=== PATIENT | male | born 1990 | race Caucasian/White ===

== ENCOUNTER 2017-03-01 02:43 | Emergency (ER) | payer SELFPAY ==
[~2017-03-01] VITALS: Ht 198.1 cm; Wt 97.8 kg
[2017-03-01 02:48] VITALS: BP 128/74; PULSE 95; RESP 16; TEMP 98.2; O2SAT 97
[2017-03-01 03:40] VITALS: BP_SYST 100; BP_SYST 112; BP_SYST 118; BP_DIAS 52; BP_DIAS 54; BP_DIAS 62; RESP 16
[2017-03-01] MEDS ORDERED: SODIUM CHLOR 0.9% 1000 ML INJ 1,000 ML IV SCH (03:44)
[2017-03-01 03:45] VITALS: O2SAT 99
[2017-03-01] MEDS ORDERED: SODIUM CHLORIDE 0.9% FLUSH 10 ML FLUSH IVF PRN (03:45)
[2017-03-01 04:15] VITALS: BP 114/52; PULSE 67; RESP 18; O2SAT 98
[2017-03-01 04:28] LABS: AUTOMATED NEUTROPHIL # 4.2 TH/MM3 (1.8-7.7); BASOPHIL # 0.3 TH/MM3 (0-0.2); EOSINOPHIL # 0.2 TH/MM3 (0-0.4); EOSINOPHIL % 2.1 % (0.0-4.0); HEMATOCRIT 48.5 % (39.0-51.0); HEMO FLAGS DIFF FINAL; LYMPH % 40.6 % (9.0-44.0); LYMPHOCYTE # 3.6 TH/MM3 (1.0-4.8); MEAN CELL VOLUME 81.7 FL (80.0-100.0); MEAN CORPUSCULAR HEMOGLOBIN 26.9 PG (27.0-34.0); MEAN CORPUSCULAR HGB CONC 32.9 % (32.0-36.0); MONO % 6.3 % (0.0-8.0); PLATELET COUNT 283 TH/MM3 (150-450); RED BLOOD COUNT 5.93 MIL/MM3 (4.50-5.90); RED CELL DISTRIBUTION WIDTH 12.1 % (11.6-17.2); WHITE BLOOD COUNT 8.9 TH/MM3 (4.0-11.0)
[2017-03-01 04:36] LABS: CHLORIDE 104 MEQ/L (98-107); POTASSIUM 3.9 MEQ/L (3.5-5.1); SODIUM (NA) 139 MEQ/L (136-145)
[2017-03-01 04:40] LABS: ANION GAP 6 MEQ/L (5-15); BICARBONATE 29.4 MEQ/L (21.0-32.0); BLOOD UREA NITROGEN 9 MG/DL (7-18)
[2017-03-01 04:41] LABS: APTT (PATIENT) 34.5 SEC (24.3-30.1); PROTHROMBIN TIME - PATIENT 11.6 SEC (9.8-11.6)
[2017-03-01 04:43] LABS: ALT (GPT) 22 U/L (12-78); AST (GOT) 15 U/L (15-37); GLOMERULAR FILTRATION RATE 122 ML/MIN (>89)
[2017-03-01 04:44] LABS: TOTAL BILIRUBIN ADULT 0.6 MG/DL (0.2-1.0)
[2017-03-01 04:46] LABS: ALKALINE PHOSPHATASE 86 U/L (45-117)
--- NOTE | 2017-03-01 04:49 | PD ---
HPI Chief Complaint: GI Complaint Time Seen by Provider: 03:44 Travel History International Travel<30 days: No Contact w/Intl Traveler<30days: No Traveled to known affect area: No History of Present Illness HPI 26-year-old male presents to the emergency department by private transportation for evaluation of episode of painless rectal bleeding just prior to arrival to the emergency department patient states has had a few similar episodes in the past but smaller volume and became concerned due to noting blood on toilet paper as well as toilet bowl. Patient states he hasn't felt quite well today but does not report fever chills nausea vomiting anorexia or abdominal pain. No history or family history of inflammatory bowel disease or irritable bowel syndrome. Patient rates his pain 0/10 intensity. Patient denies any chronic medical concerns. No recent antibiotic use. Also no near syncope syncope dyspnea generalized weakness or shortness of breath reported. PFSH Past Medical History Narrative Medical Kidney stones; no surgery; tobacco use alcohol use; no significant Diminished Hearing: No Kidney Stones: Yes Tetanus Vaccination: < 5 Years Influenza Vaccination: No Past Surgical History Surgical History: No Previous Surgery Social History Alcohol Use: Yes (Rarely) Tobacco Use: Yes (1/2 ppd) Substance Use: No Allergies-Medications (Allergen,Severity, Reaction): Coded Allergies: No Known Allergies (Unverified , 03/01/17) Reported Meds & Prescriptions Reported Meds & Active Scripts Active No Active Prescriptions or Reported Medications Review of Systems Except as stated in HPI: all other systems reviewed are Neg Physical Exam Narrative GENERAL: Well-developed well-nourished male in no acute distress no respiratory distress SKIN: Warm and dry. HEAD: Normocephalic. EYES: No scleral icterus. No injection or drainage. NECK: Supple, trachea midline. No JVD or lymphadenopathy. CARDIOVASCULAR: Regular rate and rhythm without murmurs, gallops, or rubs. RESPIRATORY: Breath sounds equal bilaterally. No accessory muscle use. GASTROINTESTINAL: Abdomen soft, non-tender, nondistended. No guarding no rebound no tenderness to direct palpation. Rectal exam normal sphincter tone no prolapsed hemorrhoids no fissure no tear; normal sphincter tone; light brown stool with streaks of red blood on the exam glove. MUSCULOSKELETAL: No cyanosis, or edema. BACK: Nontender without obvious deformity. No CVA tenderness. Data Data Last Documented VS Vital Signs Date Time Temp Pulse Resp B/P (MAP) Pulse Ox O2 Delivery O2 Flow Rate FiO2 03/01/17 05:25 62 18 111/58 (75) 100 Room Air 03/01/17 02:48 98.2 Orders Orders Complete Blood Count With Diff (03/01/17 03:44) Comprehensive Metabolic Panel (03/01/17 03:44) Prothrombin Time / Inr (Pt) (03/01/17 03:44) Act Partial Throm Time (Ptt) (03/01/17 03:44) Abdomen, Flat & Upright (03/01/17 03:44) Ecg Monitoring (03/01/17 03:44) Iv Access Insert/Monitor (03/01/17 03:44) Oximetry (03/01/17 03:44) Sodium Chlor 0.9% 1000 Ml Inj (Ns 1000 M (03/01/17 03:44) Sodium Chloride 0.9% Flush (Ns Flush) (03/01/17 03:45) Orthostatic Vital Signs (03/01/17 03:44) Ct Abd/Pel W Iv Contrast(Rout) (03/01/17 ) Iohexol 350 Inj (Omnipaque 350 Inj) (03/01/17 05:22) Mandatory Outpatient Referral (03/01/17 05:59) Labs Laboratory Tests Test 03/01/17 03:45 White Blood Count 8.9 TH/MM3 Red Blood Count 5.93 MIL/MM3 Hemoglobin 15.9 GM/DL Hematocrit 48.5 % Mean Corpuscular Volume 81.7 FL Mean Corpuscular Hemoglobin 26.9 PG Mean Corpuscular Hemoglobin Concent 32.9 % Red Cell Distribution Width 12.1 % Platelet Count 283 TH/MM3 Mean Platelet Volume 8.6 FL Neutrophils (%) (Auto) 48.0 % Lymphocytes (%) (Auto) 40.6 % Monocytes (%) (Auto) 6.3 % Eosinophils (%) (Auto) 2.1 % Basophils (%) (Auto) 3.0 % Neutrophils # (Auto) 4.2 TH/MM3 Lymphocytes # (Auto) 3.6 TH/MM3 Monocytes # (Auto) 0.6 TH/MM3 Eosinophils # (Auto) 0.2 TH/MM3 Basophils # (Auto) 0.3 TH/MM3 CBC Comment DIFF FINAL Differential Comment Prothrombin Time 11.6 SEC Prothromb Time International Ratio 1.0 RATIO Activated Partial Thromboplast Time 34.5 SEC Blood Urea Nitrogen 9 MG/DL Creatinine 0.78 MG/DL Random Glucose 83 MG/DL Total Protein 7.8 GM/DL Albumin 3.9 GM/DL Calcium Level 8.6 MG/DL Alkaline Phosphatase 86 U/L Aspartate Amino Transf (AST/SGOT) 15 U/L Alanine Aminotransferase (ALT/SGPT) 22 U/L Total Bilirubin 0.6 MG/DL Sodium Level 139 MEQ/L Potassium Level 3.9 MEQ/L Chloride Level 104 MEQ/L Carbon Dioxide Level 29.4 MEQ/L Anion Gap 6 MEQ/L Estimat Glomerular Filtration Rate 122 ML/MIN MDM Medical Decision Making Medical Screen Exam Complete: Yes Emergency Medical Condition: Yes Medical Record Reviewed: Yes Interpretation(s) CBC & BMP Diagram 03/01/17 03:45 Total Protein 7.8, Albumin 3.9, Calcium Level 8.6, Alkaline Phosphatase 86, Aspartate Amino Transf (AST/SGOT) 15, Alanine Aminotransferase (ALT/SGPT) 22, Total Bilirubin 0.6 Vital Signs Date Time Temp Pulse Resp B/P (MAP) Pulse Ox O2 Delivery O2 Flow Rate FiO2 03/01/17 04:15 67 18 114/52 (72) 98 Room Air 03/01/17 03:45 99 Room Air 03/01/17 03:40 70 16 112/54 (73) 78 16 118/62 (80) 90 16 100/52 (68) 03/01/17 02:48 98.2 95 16 128/74 (92) 97 Differential Diagnosis Rectal bleeding, internal hemorrhoid, mass, colitis, diverticulitis, viral syndrome Narrative Course IV access obtained specimens collected and sent for resulting orthostatic measurements were performed which showed some heart rate and blood pressure variance supine to standing; patient given liter of normal saline. Flat and upright abdomen x-ray reveals no acute abnormalities CBC is automated differential within normal limits CT abdomen and pelvis reveals no acute abnormalities Patient resting comfortably no recurrence of rectal bleeding and patient reassessed with ambulation about the emergency department and remained asymptomatic Patient stable for outpatient management for rectal bleeding that appears to be controlled possibly internal hemorrhoids; mandatory referral for GI referral made and patient is aware that he will be contacted by case management regarding his appointment. Patient is encouraged to return immediately to the emergency department for any recurrent symptoms. No work times one day [facility] Point of Care Internal Pos. & Neg. Controls: Passed Fecal Specimen Occult Blood: Positive Diagnosis Primary Impression: Rectal bleeding Referrals: [employer] Consultant call for appointment Patient Instructions: General Instructions Departure Forms: Tests/Procedures, Work Release Special Instructions: no work x 1 day Additional Instructions: Increase fluid hydration Recommend clear liquid diet for next 12-24 hours advance as tolerated to bland diet adding dietary fiber and supplementing with [id number] fiber preparations Follow-up with human resources admin Return to the emergency department for any concerns or change in condition No work times one day Scripts No Active Prescriptions or Reported Meds Disposition: 01 DISCHARGE HOME Condition: Stable Elvia Allan MD Mar 01, 2017 04:49
--- NOTE | 2017-03-01 04:52 | RADRPT ---
EXAM DATE/TIME: 03/01/2017 03:53 [facility] COMPARISON: No previous studies available for comparison. INDICATIONS : Patient states blood in stool. MEDICAL HISTORY : None. SURGICAL HISTORY : None. ENCOUNTER: Initial ACUITY: 2 days PAIN SCORE: 5/10 LOCATION: Bilateral abdomen. FINDINGS: Supine and upright views of the abdomen were performed. The abdominal bowel gas pattern is normal. No air fluid levels are seen. No abnormal masses, calcifications, or organomegaly is seen. The visu alized lower lungs are clear. No evidence of free intraperitoneal gas. The osseous structures are u nremarkable. CONCLUSION: Normal examination. Sanjeev Ford Jr., MD on March 01, 2017 at 4:50 Board Certified Radiologist. This report was verified electronically.
[2017-03-01] MEDS ORDERED: IOHEXOL 350 MG/ML 10 ML VIAL (for RAD DIAG) IVCONTRAST ONE (05:22)
[2017-03-01 05:25] VITALS: BP 111/58; PULSE 62; RESP 18; O2SAT 100
--- NOTE | 2017-03-01 05:41 | RADRPT ---
EXAM DATE/TIME: 03/01/2017 05:12 [facility] COMPARISON: No previous studies available for comparison. INDICATIONS : Abdominal pain. Rectal bleeding. IV CONTRAST: 100 cc Omnipaque 350 (iohexol) IV ORAL CONTRAST: No oral contrast ingested. RADIATION DOSE: 12.69 CTDIvol (mGy) MEDICAL HISTORY : None SURGICAL HISTORY : None. ENCOUNTER: Initial ACUITY: 1 day PAIN SCALE: 0/10 LOCATION: lower quadrant TECHNIQUE: Volumetric scanning of the abdomen and pelvis was performed. Using automated exposure control and ad justment of the mA and/or kV according to patient size, radiation dose was kept as low as reasonably achievable to obtain optimal diagnostic quality images. DICOM format image data is available electro nically for review and comparison. FINDINGS: LOWER LUNGS: The visualized lower lungs are clear. LIVER: Homogeneous density without lesion. There is no dilation of the biliary tree. No calcified gallston es. SPLEEN: Normal size without lesion. PANCREAS: Within normal limits. KIDNEYS: Normal in size and shape. There is no mass, stone or hydronephrosis. ADRENAL GLANDS: Within normal limits. VASCULAR: There is no aortic aneurysm. BOWEL/MESENTERY: The stomach, small bowel, and colon demonstrate no acute abnormality. There is no free intraperitone al air or fluid. ABDOMINAL WALL: Within normal limits. RETROPERITONEUM: There is no lymphadenopathy. BLADDER: No wall thickening or mass. REPRODUCTIVE: Within normal limits. INGUINAL: There is no lymphadenopathy or hernia. MUSCULOSKELETAL: Within normal limits for patient age. CONCLUSION: Normal examination. Sanjeev Ford Jr., MD on March 01, 2017 at 5:38 Board Certified Radiologist. This report was verified electronically.
[2017-03-01 06:08] VITALS: BP 118/61; TEMP 97.8
== END 2017-03-01 06:08 | disposition home or self-care (01) ==
LOC: PHED 02:43
DX: K62.5 Hemorrhage of anus and rectum (principal); F17.200 Nicotine dependence, unspecified, uncomplicated
CPT/HCPCS: 74020; 74177; 80053; 85025; 85610; 85730; 96360; 99285; J7030; Q9967